=== PATIENT | male | born 1940 | race Caucasian/White ===

== ENCOUNTER → 2017-11-21 | Outpatient (CLI) | payer OTHER ==
[~2017-11-21] MED LIST: ACET-1047 PO; CNT PO; INSDGIPEN SC; NUTR-7 PO; NVLGIPEN SC
== END ==
LOC: C.LABCC 17:30
PROVIDERS: ATTEND Internal Medicine
DX: S71.002A Unspecified open wound, left hip, initial encounter (principal); X58.XXXA Exposure to other specified factors, initial encounter

== ENCOUNTER → 2018-02-04 | Outpatient (CLI) | payer OTHER ==
[2018-02-04 08:30] LABS: BLOOD UREA NITROGEN 31 mg/dl (7-18); CALCIUM 8.5 mg/dl (8.5-10.1); CARBON DIOXIDE 28 mmol/L (21-32); CREATININE 1.15 mg/dl (0.60-1.40); GLUCOSE 121 mg/dl (70-99); POTASSIUM 4.1 mmol/L (3.5-5.1); SODIUM 138 mmol/L (136-145)
== END ==
LOC: C.LABCC 07:58
PROVIDERS: ATTEND Internal Medicine
DX: E11.319 Type 2 diabetes mellitus with unspecified diabetic retinopathy without macular edema (principal)

== ENCOUNTER → 2018-02-12 | Outpatient (CLI) | payer OTHER ==
[~2018-02-12] MED LIST changes: +BCTROWC EXT; +BISA10SU38 PR; +CITA20TA9 PO; +GLC500 PO; +LVMI SC; +MOML PO; +NVLG SC; +[UNRECOGNIZED DRUG - CODE]
== END | disposition home or self-care (01) ==
LOC: C.LABCC 14:00
PROVIDERS: ATTEND Internal Medicine
DX: E11.9 Type 2 diabetes mellitus without complications (principal)

== ENCOUNTER 2018-02-15 15:42 | Emergency (ER) | payer OTHER ==
[~2018-02-15] VITALS: Ht 167.6 cm; Wt 59.3 kg
[~2018-02-15 15:42] MED LIST changes: -BCTROWC EXT; -BISA10SU38 PR; -CITA20TA9 PO; -GLC500 PO; -LVMI SC; -MOML PO; -NVLG SC; -[UNRECOGNIZED DRUG - CODE]
[2018-02-15 15:52] VITALS: TEMP 36.3; Ht 167.6 cm; Wt 59.3 kg
[2018-02-15] MEDS ORDERED: SODIUM CHLORIDE 0.9% 1000ML 1,000 ML IV STA (16:01)
--- NOTE | 2018-02-15 16:07 | EMERGENCY ROOM VISIT NOTE ---
History Report prepared by Alexia: Mario Fields Under the Supervision of: Dr. Chet Seals M.D. 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 Per EMS report the patient's blood pressure was 46/29 and that he had an oxygen saturation of 76-83% on room air upon EMS arrival. The patient complains of generalized pain but denies any eye pain. Per nurse, the patient has a history of blindness. HPI limited secondary to AMS. Source of History: patient History Limited By: AMS Onset: this morning Position: head Timing: other (an episode) Note: The patient complains of generalized pain. He denies any eye pain. Review of Systems ROS limited secondary to AMS. Past Medical & Surgical Medical Problems: (1) Blind (2) Cataract Family History No significant family history Social History Smoking Status: Current Every Day Smoker Drug Use: none Marital Status: single Housing Status: snf Occupation Status: retired Current/Historical Medications Scheduled Bisacodyl (Dulcolax), 1 SUPP [place] DIRECTED Citalopram Hydrobromide (Celexa), 20 MG PO HS Insulin Aspart (Novolog), SC ACHS Metformin HCl (Metformin HCl), 500 MG PO DAILY Multivitamins/Minerals (Certavite/Antioxidants), 1 TAB PO QAM Nutritional Supplements (Boost), 1 CAN PO BIDM Scheduled PRN Acetaminophen (Mapap), 650 MG PO Q4H PRN for Pain or Fever Magnesium Hydroxide (Milk Of Magnesia), 30 ML PO DIRECTED PRN for Constipation Miscellaneous Medications Insulin Detemir (Levemir), 2 UNITS SC Mupirocin (Bactroban 2% Oint), 1 APPLN EXT Rectal Cleansers (Fleet [employer]atur[employer] Cleansing) Allergies Coded Allergies: No Known Allergies (Unverified , 02/15/18) Physical Exam Vital Signs Date Time Temp Pulse Resp B/P (MAP) Pulse Ox O2 Delivery O2 Flow Rate FiO2 02/15/18 20:34 86 16 142/83 98 02/15/18 18:03 86 16 142/83 98 Room Air 02/15/18 15:52 36.3 95 22 125/77 97 Room Air Physical Exam GENERAL: Awake, alert, fatigued and cachectic appearing, in no distress HENT: Normocephalic, atraumatic. Oropharynx unremarkable. Dry, cracked MM. EYES: Normal conjunctiva. Sclera non-icteric. NECK: Supple. No nuchal rigidity. FROM. No JVD. RESPIRATORY: Clear to auscultation. CARDIAC: Regular rate, normal rhythm. Extremities warm and well perfused. Pulses equal. ABDOMEN: Soft, non-distended. No tenderness to palpation. No rebound or guarding. No masses. RECTAL: Deferred. MUSCULOSKELETAL: Chest examination reveals no tenderness. The back is symmetrical on inspection without obvious abnormality. There is no CVA tenderness to palpation. No joint edema. LOWER EXTREMITIES: Calves are equal size bilaterally and non-tender. No edema. No discoloration. NEURO: Normal sensorium. No sensory or motor deficits noted. Alert to self. SKIN: No rash or jaundice noted. Medical Decision & Procedures ER Provider Diagnostic Interpretation: Radiology results as stated below per my review and radiologist interpretation: HEAD WITHOUT CONTRAST (CT) Findings: The paranasal sinuses and mastoid air cells are clear. The calvarium and skull base are intact. The ventricles and sulci are within normal limits. There is no mass, hematoma, midline shift, or acute infarct. Chronic atrophy and age-related chronic small vessel change. Impression: No acute intracranial abnormality. Chronic and age-related change. The above report was generated using voice recognition software. It may contain grammatical, syntax or spelling errors. Electronically signed by: Emeka Lujan M.D. 02/15/2018 4:52 PM Laboratory Results 02/15/18 15:25 Red Blood Count 3.98, Mean Corpuscular Volume 92.2, Mean Corpuscular Hemoglobin 31.4, Mean Corpuscular Hemoglobin Concent 34.1, Mean Platelet Volume 9.5, Neutrophils (%) (Auto) 54.2, Lymphocytes (%) (Auto) 35.6, Monocytes (%) (Auto) 8.1, Eosinophils (%) (Auto) 1.4, Basophils (%) (Auto) 0.4, Neutrophils # (Auto) 5.95, Lymphocytes # (Auto) 3.91, Monocytes # (Auto) 0.89, Eosinophils # (Auto) 0.15, Basophils # (Auto) 0.04 02/15/18 15:25 Test 02/15/18 15:25 White Blood Count 10.97 K/uL (4.8-10.8) Red Blood Count 3.98 M/uL (4.7-6.1) Hemoglobin 12.5 g/dL (14.0-18.0) Hematocrit 36.7 % (42-52) Mean Corpuscular Volume 92.2 fL (80-100) Mean Corpuscular Hemoglobin 31.4 pg (25-34) Mean Corpuscular Hemoglobin Concent 34.1 g/dl (32-36) Platelet Count 408 K/uL (130-400) Mean Platelet Volume 9.5 fL (7.4-10.4) Neutrophils (%) (Auto) 54.2 % Lymphocytes (%) (Auto) 35.6 % Monocytes (%) (Auto) 8.1 % Eosinophils (%) (Auto) 1.4 % Basophils (%) (Auto) 0.4 % Neutrophils # (Auto) 5.95 K/uL (1.4-6.5) Lymphocytes # (Auto) 3.91 K/uL (1.2-3.4) Monocytes # (Auto) 0.89 K/uL (0.11-0.59) Eosinophils # (Auto) 0.15 K/uL (0-0.5) Basophils # (Auto) 0.04 K/uL (0-0.2) RDW Standard Deviation 44.3 fL (36.4-46.3) RDW Coefficient of Variation 13.1 % (11.5-14.5) Immature Granulocyte % (Auto) 0.3 % Immature Granulocyte # (Auto) 0.03 K/uL (0.00-0.02) Urine Color DK YELLOW Urine Appearance CLEAR (CLEAR) Urine pH 5.0 (4.5-7.5) Urine Specific [place] 1.033 (1.000-1.030) Urine Protein TRACE (NEG) Urine Glucose (UA) 3+ (NEG) Urine Ketones TRACE (NEG) Urine Occult Blood NEG (NEG) Urine Nitrite NEG (NEG) Urine Bilirubin NEG (NEG) Urine Urobilinogen NEG (NEG) Urine Leukocyte Esterase NEG (NEG) Urine WBC (Auto) 1-5 /hpf (0-5) Urine RBC (Auto) 0-4 /hpf (0-4) Urine Hyaline Casts (Auto) 1-5 /lpf (0-5) Urine Epithelial Cells (Auto) 5-10 /lpf (0-5) Urine Bacteria (Auto) NEG (NEG) Urine Renal Epithelial Cells /lpf (0-5) Urine Pathogenic Casts /lpf (0) Anion Gap 7.0 mmol/L (3-11) Est Creatinine Clear Calc Drug Dose 35.5 ml/min Estimated GFR () 51.6 Estimated GFR (Non- 44.5 BUN/Creatinine Ratio 19.0 (10-20) Calcium Level 8.8 mg/dl (8.5-10.1) Phosphorus Level 2.3 mg/dl (2.5-4.9) Magnesium Level 1.9 mg/dl (1.8-2.4) Total Bilirubin 0.4 mg/dl (0.2-1) Direct Bilirubin 0.1 mg/dl (0-0.2) Aspartate Amino Transf (AST/SGOT) 13 U/L (15-37) Alanine Aminotransferase (ALT/SGPT) 27 U/L (12-78) Alkaline Phosphatase 61 U/L (45-117) Troponin I < 0.015 ng/ml (0-0.045) Total Protein 7.1 gm/dl (6.4-8.2) Albumin 3.0 gm/dl (3.4-5.0) Lipase 188 U/L (73-393) Laboratory results reviewed by me Medications Administered Medications (Trade) Dose Ordered Sig/Garrett Route Start Time Stop Time Status Last Admin Dose Admin Sodium Chloride 1,000 ml @ 999 mls/hr Q1H1M STAT IV 02/15/18 16:01 02/15/18 17:01 DC 02/15/18 18:28 999 MLS/HR ECG Per My Interpretation Indication: altered mental status Rate (beats per minute): 91 Rhythm: sinus rhythm Findings: PAC, RBBB (incomplete), other (Right axis deviation, no acute ischemia) Comparison ECG Date: 10/24/2017 ED Course 1553: The patient was evaluated in room A11. A complete history and physical exam was performed. 1755: I spoke to the charge nurse and Clinch Kristen. She stated that the patient' s episode was around 1500 today. She notes that the patient originally stood up and became unresponsive. Medical Decision I reviewed the patient's past medical history, medications, and the nursing notes as described above. Differential diagnosis: Etiologies such as metabolic, infection, hypo/hyperglycemia, electrolyte abnormalities, cardiac sources, intracerebral event, toxicologic, neurologic, as well as others were entertained. The patient is a 77-year-old gentleman with past medical history of severe dementia who presents emergency department from his correction facility, [facility], after having episode of unresponsiveness and hypotension that self resolved upon lying on his bed per hpi. Rather the patient is alert to self and otherwise demented with a belligerent affect which is his baseline, otherwise he is afebrile stable vital signs. EKG similar to prior. Labs demonstrate WBC of 11 which is nonspecific. Creatinine is 1.5 slightly increased from 1.3 that was done on February 04. Chest x-ray negative for pneumonia. CT head negative. Patient continues to function at his baseline here in the emergency department. Patient's daughter did come to see the patient and reports that he is at his baseline. Discussed with the charge nurse at [facility] who confirms the patient's baseline is demented and intermittently belligerent. I explained the patient's results which are consistent with mild dehydration. She confirms that they will accept the patient back given that there are no concerning objective findings other than mild dehydration for which the patient received IV fluids. Patient d/c'd back to [facility] per dci. Medication Reconcilliation Current Medication List: was personally reviewed by me Blood Pressure Screening Patient's blood pressure: Elevated blood pressure Blood pressure disposition: Elevated BP felt to be situational Impression Primary Impression: Syncope Additional Impression: Dehydration Scribe Attestation The scribe's documentation has been prepared under my direction and personally reviewed by me in its entirety. I confirm that the note above accurately reflects all work, treatment, procedures, and medical decision making performed by me. Departure Information Dispostion Home / Self-Care Referrals [facility] (PCP) Patient Instructions ED Dehydration, My [facility] Additional Instructions Please follow up with your providers in the next 1-3 days for re-evaluation. Your symptoms are most likely due to mild dehydration. Otherwise, your exam, EKG, chest xray, lab results, and CT scan of your brain did not show signs of an emergent condition at this time. Drink plenty of fluids to ensure hydration. Return to the emergency department for worsening symptoms as described in the accompanying instructions. Problem Qualifiers
[2018-02-15 16:11] LABS: BASO % 0.4 %; BASO ABS # 0.04 K/uL (0-0.2); EOS % 1.4 %; EOS ABS # 0.15 K/uL (0-0.5); HEMATOCRIT 36.7 % (42-52); HEMOGLOBIN 12.5 g/dL (14.0-18.0); IG# 0.03 K/uL (0.00-0.02); LYMPH % 35.6 %; LYMPH ABS # 3.91 K/uL (1.2-3.4); MEAN CELL VOLUME 92.2 fL (80-100); MEAN CORPUSCULAR HEMOGLOBIN 31.4 pg (25-34); MEAN CORPUSCULAR HGB CONC 34.1 g/dl (32-36); MEAN PLATELET VOLUME 9.5 fL (7.4-10.4); MONO % 8.1 %; MONO ABS # 0.89 K/uL (0.11-0.59); NEUT % 54.2 %; NEUT ABS # 5.95 K/uL (1.4-6.5); PLATELET COUNT 408 K/uL (130-400); RED CELL DISTRIBUTION WIDTH CV 13.1 % (11.5-14.5); RED CELL DISTRIBUTION WIDTH SD 44.3 fL (36.4-46.3); WHITE BLOOD COUNT 10.97 K/uL (4.8-10.8)
[2018-02-15 16:41] LABS: ALT/SGPT 27 U/L (12-78); AST/SGOT 13 U/L (15-37); BLOOD UREA NITROGEN 29 mg/dl (7-18); CALCIUM 8.8 mg/dl (8.5-10.1); CARBON DIOXIDE 31 mmol/L (21-32); CREATININE 1.51 mg/dl (0.60-1.40); GLUCOSE 79 mg/dl (70-99); LIPASE 188 U/L (73-393); POTASSIUM 4.5 mmol/L (3.5-5.1); SODIUM 140 mmol/L (136-145)
[2018-02-15 16:43] LABS: ALKALINE PHOSPHATASE 61 U/L (45-117); PHOSPHORUS 2.3 mg/dl (2.5-4.9); TOTAL PROTEIN 7.1 gm/dl (6.4-8.2)
--- NOTE | 2018-02-15 16:54 | DIAGNOSTIC IMAGING REPORT ---
HEAD WITHOUT CONTRAST (CT) CT DOSE: 614.27 mGy.cm HISTORY: Mental status change ams TECHNIQUE: Multiaxial CT images of the head were performed without the use of intravenous contrast. A dose lowering technique was utilized adhering to the principles of ALARA. Comparison: 10/04/2017 Findings: The paranasal sinuses and mastoid air cells are clear. The calvarium and skull base are intact. The ventricles and sulci are within normal limits. There is no mass, hematoma, midline shift, or acute infarct. Chronic atrophy and age-related chronic small vessel change. Impression: No acute intracranial abnormality. Chronic and age-related change. The above report was generated using voice recognition software. It may contain grammatical, syntax or spelling errors. Electronically signed by: Emeka Lujan M.D. 02/15/2018 4:52 PM Dictated Date/Time: 02/15/2018 4:50 PM
[2018-02-15] MEDS ORDERED: GLC500 PO (17:56)
[2018-02-15] MEDS ORDERED: MOML PO (17:56)
[2018-02-15] MEDS ORDERED: LVMI SC (17:56)
[2018-02-15] MEDS ORDERED: NVLG SC (17:56)
[2018-02-15] MEDS ORDERED: BCTROWC EXT (17:56)
[2018-02-15] MEDS ORDERED: CITA20TA9 PO (17:56)
[2018-02-15] MEDS ORDERED: [UNRECOGNIZED DRUG - CODE] (17:56)
[2018-02-15] MEDS ORDERED: BISA10SU38 PR (17:56)
--- NOTE | 2018-02-15 18:44 | DIAGNOSTIC IMAGING REPORT ---
CHEST ONE VIEW PORTABLE CLINICAL HISTORY: ABDOMINAL PAIN/GI pain. Nausea. COMPARISON STUDY: 10/04/2007 FINDINGS: Pre-existing emphysematous change. Increased prominence of pulmonary vasculature. Diaphragms are smooth. Minimal atelectasis left base. IMPRESSION: Emphysematous change with components of mild congestive failure The above report was generated using voice recognition software. It may contain grammatical, syntax or spelling errors. Electronically signed by: Emeka Lujan M.D. 02/15/2018 6:42 PM Dictated Date/Time: 02/15/2018 6:42 PM
[2018-02-15 20:34] VITALS: BP 142/83; PULSE 86; O2SAT 98
== END 2018-02-15 20:35 | disposition home or self-care (01) ==
LOC: EDBD 15:42 → C.EDA 15:43
DX: E86.0 Dehydration (principal); R55 Syncope and collapse; F03.90 Unspecified dementia, unspecified severity, without behavioral disturbance, psychotic disturbance, mood disturbance, and anxiety; H54.3 Unqualified visual loss, both eyes; H26.9 Unspecified cataract; F17.200 Nicotine dependence, unspecified, uncomplicated; E11.9 Type 2 diabetes mellitus without complications; Z79.4 Long term (current) use of insulin